=== PATIENT | female | born 2000 | race Caucasian/White ===

== ENCOUNTER 2022-03-16 19:42 | Emergency (ER) | payer MEDICAID, SELFPAY ==
[2022-03-16 19:43] VITALS: BP 109/64; PULSE 75; RESP 18; TEMP 37.1; O2SAT 95; BMI 33.5
[2022-03-16 19:48] VITALS: O2SAT 98
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
[2022-03-16 20:21] LABS: Absolute Lymphocyte Count 2.72 X10^3/uL (0.83-4.51); Absolute Neutrophil Count 12.4 X10^3/uL (2.0-7.7); Basophil# 0.05 X10^3/uL; Basophil% 0.3 % (0-1); Eosinophil# 0.17 X10^3/uL; Hematocrit 38.4 % (37-47); Hemoglobin 13.2 g/dL (12.0-15.0); Lymphocyte # 2.72 X10^3/ul (0.83-4.51); Lymphocyte % 16.4 % (19-41); Mean Corp Hgb Conc 34.4 g/dL (32-36); Mean Corpuscular Hgb 30.7 pg (27.0-32.0); Mean Corpuscular Volume 89.3 fL (81-99); Mean Platelet Vol. 10.6 fl (6.2-12.0); Monocyte# 1.16 X10^3/uL; NRBC Flagged by Analyzer 0 % (0-5); Neutrophil # 12.41 X10^3/uL (2.7-7.7); Neutrophil % 74.9 % (47-70); Platelet Count 317 K/mm3 (150-450); RBC Distribution Width CV 13.9 % (11.6-14.6); RBC Distribution Width SD 45.1 fl (35.1-43.9); White Blood Count 16.6 K/mm3 (4.4-11.0)
[2022-03-16 20:47] LABS: ALB/GLOB Ratio 0.9 RATIO (0.9-2.4); AST(SGOT) 19 U/L (15-37); Alanine Aminotransfer ALT/SGPT 22 U/L (13-56); Albumin, Serum 3.4 g/dL (3.2-5.0); Alkaline Phosphatase 58 U/L (45-117); Anion Gap 10 (5-15); BUN 10 mg/dL (7-18); BUN/Creat Ratio 17.7 RATIO (10-20); Calcium,Total 8.2 mg/dL (8.5-10.1); Chloride 103 mmol/L (98-107); Creatinine, Serum 0.57 mg/dL (0.55-1.02); EST Glomerular Filtration Rate 142 mL/min (>60); Est Glom Filt Rate - Afr Amer 172 mL/min (>60); Estimated Creatinine Clearance 112.14 ml/min; Globulin 3.6 g/dL (2.2-4.2); Glucose 135 mg/dL (74-106); Potassium 3.4 mmol/L (3.5-5.1); Sodium Level 137 mmol/L (136-145)
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
[2022-03-16] MEDS: Ondansetron ODT 4 MG Tablet PO (20:50)
--- NOTE | 2022-03-16 21:20 | RAD_ITS ---
INDICATION: injury EXAMINATION/TECHNIQUE: X-RAY - LEFT XR Knee 1 or 2 Views 2 VIEWS COMPARISON: None. FINDINGS: SOFT TISSUES: Stranding soft tissue density in the subcutaneous soft tissues anterior to the patellar tendon suggesting possible contusion. Bursitis could potentially have similar appearance. Patellar tendon shadow is normal. BONES/JOINTS: No acute fracture or malalignment. Preservation of the joint space and no degenerative bony proliferative changes. No sclerotic or destructive changes observed. RAD/Knee 1 or 2 Views IMPRESSION: Stranding density subcutaneous soft tissues anterior to the patella suggesting contusion. Bursitis could potentially have a similar appearance. No evidence of osseous injury. Electronically Signed: Cali Da Silva DO at 21:01 EDT ,
[2022-03-16 21:51] LABS: Alcohol, Blood (Medical)-Serum < 3.0 mg/dL
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
[2022-03-16 22:03] VITALS: BP 98/82; PULSE 100; RESP 18; O2SAT 95
[2022-03-16 22:05] LABS: Mucous, Urine 0 SEEN /hpf (<or=2+)
[2022-03-16 22:07] LABS: Color, Urine Yellow (Yellow); Glucose, Dipstick Normal (Normal); Ketone-Dipstick Negative (Negative); Leukocyte Esterase-Dipstick 25 /ul (Negative); Nitrite-Dipstick Negative (Negative); Occult Blood-Urine 10 /ul (Negative); Protein-Dipstick Negative (Negative); Urine Bilirubin Dipstick Negative (Negative); Urine Clarity Clear (Clear); Urine Urobilinogen Normal (Normal)
[2022-03-16 22:15] LABS: Bacteria RARE /hpf (None Seen); Red Blood Cells-Urine 0-5 SEEN /hpf (0-5); Squamous Epithelial Cells - UA 0-5 SEEN /hpf (5-10); White Blood Cells 0-5 SEEN /hpf (0-5)
[2022-03-16 22:21] LABS: Amphetamine Urine VISTA NEGATIVE (<1000 ng/mL); Barbiturate Urine VISTA NEGATIVE (< 200 ng/mL); Benzodiazepine Urine VISTA NEGATIVE (< 200 ng/mL); Cocaine Urine VISTA NEGATIVE (< 300 ng/mL); Ecstacy Urine VISTA NEGATIVE (< 500 ng/mL); Methadone Urine VISTA NEGATIVE (< 300 ng/mL); PCP Urine VISTA NEGATIVE (< 25 ng/mL); THC Urine VISTA POSITIVE (< 50 ng/mL); Vista UDS pH Range 6
[2022-03-17 00:49] VITALS: BP 114/64; PULSE 101; RESP 16; O2SAT 97
[2022-03-17] MEDS: Acetaminophen 325 MG Tablet 650 MG PO (00:58)
== END 2022-03-17 00:59 | disposition home or self-care (01) ==
PROVIDERS: Emergency Provider Emergency Medicine; Visit Provider Emergency Medicine
DX: O9A.211 Injury, poisoning and certain other consequences of external causes complicating pregnancy, first trimester (principal); Y92.410 Unspecified street and highway as the place of occurrence of the external cause; F12.90 Cannabis use, unspecified, uncomplicated; R31.9 Hematuria, unspecified; S30.1XXA Contusion of abdominal wall, initial encounter; O99.321 Drug use complicating pregnancy, first trimester; S20.20XA Contusion of thorax, unspecified, initial encounter; V43.62XA Car passenger injured in collision with other type car in traffic accident, initial encounter; S80.02XA Contusion of left knee, initial encounter; V43.52XA Car driver injured in collision with other type car in traffic accident, initial encounter
CPT/HCPCS: 70450; 71260; 72125; 73560; 74177; 76817; 80053; 80307; 81001; 82077; 85025; 86900; 86901; 99285; Q9967; A4216

== ENCOUNTER 2022-05-18 18:26 | Emergency (ER) | payer MEDICAID, SELFPAY ==
[2022-05-18 18:26] VITALS: BP 100/59; PULSE 86; RESP 16; TEMP 35.9; O2SAT 97; BMI 32.1
--- NOTE | 2022-05-18 18:58 | EDS_ITS ---
HPI History of Present Illness Chief Complaint: Back Informant: patient Narrative Narrative: Patient actually complains of left shoulder area pain. She states it comes from a combination of her dog and work. She states her dog is probably 60 pounds. He walks on her left side. Has a tendency to run no matter what it sees and will jerk her arm. Every time it does this it causes soreness around the posterior scapular area. 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 She does a lot of lifting overhead and this bothers her arm. She states sometimes she gets tingling in her hand but it is her entire hand. Is not located to one area. Its not going on now. No color changes. No chest pain or trouble breathing. She is 17 weeks but is having no symptoms related to that. She is right-hand dominant. She states if her boyfriend anne carmonages it it feels better. She is trying to get hold of her insurance company to see if they will pay for massages. [facility] Medical History Anxiety Asthma Depression Home Medications fluoxetine 20 mg tablet 20 mg PO DAILY 03/16/22 [History Last Taken Unknown] vitamins no.144-folic acid 400 mcg chewable tablet () 1 tab PO DAILY 03/16/22 [History Last Taken Unknown] Allergy/AdvReac Type Severity Reaction Status Date / Time No Known Allergies Allergy Verified 05/18/22 18:26 Social History Smoking Status: Never smoker substance use type: marijuana ROS ROS ED Constitutional Constitutional ED: Denies chills or fever(s) ENT ENT ED: Denies ear pain, rhinorrhea or sore throat Cardiovascular Cardiovascular: Denies chest pain, orthopnea, palpitations or racing heartbeat Respiratory/Chest Respiratory/Chest: Denies dyspnea, dyspnea on exertion or orthopnea Gastrointestinal Gastrointestinal: Denies nausea or vomiting Genitourinary Genitourinary ED: Denies hematuria Musculoskeletal Musculoskeletal: Reports other Details: See history of present illness Integumentary Denies Abrasions or rash Neurologic Neurologic: Reports paresthesias; Denies headache(s) or weakness Endocrine Endocrinology: Denies polydipsia or polyuria Hematologic/Lymphatic Hematologic/Lymphatic: Denies easy bleeding or easy bruising Allergic/Immunologic Allergic/Immunologic ED: Denies urticaria EXAM Physical Exam Const Vital Signs: 05/18/22 18:26 Temperature 96.7 F L Temperature Source Temporal Pulse Rate 86 Respiratory Rate 16 Blood Pressure 100/59 L Blood Pressure Mean 72 Pulse Ox 97 Oxygen Delivery Method Room Air Positive well nourished and well developed General Appearance ED: well developed and NAD; Negative for pallor HEENT Reports moist mucous membranes Neck no lymphadenopathy, supple and no JVD Neck Narrative: No cervical spine tenderness or pain with range of motion or axial loading. Resp normal respiratory effort and clear to auscultation bilaterally Resp Narrative: Lungs are clear bilaterally. No pain with a deep breath. Cardio regular rate and regular rhythm GI normal to inspection, nondistended, normoactive bowel sounds and soft to palpation Back/Spine normal to inspection Back/Spine Narrative: No spinal tenderness. Extremity normal to inspection Extremity Narrative: Her range of motion is actually still good. She has some tenderness to the supra and infraspinatus muscles on the left. No tenderness along the humerus. No AC joint tenderness. There is no erythema or warmth or skin changes. Distal pulses are intact. Sensation is intact air hammer stripper strength is intact biceps triceps strength is intact. Neuro oriented x3 and no sensory deficits noted Sensorium / Orientation: Negative for confused, lethargic or stuporous Motor Exam: strength 5/5 throughout; Negative for strength abnormal Skin no rashes or lesions noted General Skin Exam: Negative for jaundice or pallor MDM MDM MDM Narrative Medical decision making narrative: I explained to the patient that I think this is muscular strain from combination of walking her dog frequently and the work that she does. We will write her for light duty for a few days. She will have her boyfriend walk the dog or walk the dog on the right side for a change. She can use Tylenol ice rest and massage. I do not want to use narcotics steroids or nonsteroidals with her being 17 weeks . She understands this. She will follow-up with her physician. Discharge Plan Triage Chief Complaint: Back ED Provider: Lew Boone Dx/Rx/DC Orders Clinical Impression: Strain of left shoulder Instructions: ED Shoulder Sprain Prescriptions: No Action fluoxetine 20 mg Tablet 20 mg PO DAILY 400 mcg Tablet,Chewable 1 tab PO DAILY Primary Care Provider: Care Physician,No Primary Referrals: Rufus Govea DO [STAFF PHYSICIAN] - 1 Week if not improving Care Physician,No Primary [Primary Care Provider] - Disposition Disposition: Home, Self Care
== END 2022-05-18 19:19 | disposition home or self-care (01) ==
LOC: ED 19:07
PROVIDERS: Emergency Provider Emergency Medicine; Visit Provider Emergency Medicine
DX: O9A.212 Injury, poisoning and certain other consequences of external causes complicating pregnancy, second trimester (principal); S46.912A Strain of unspecified muscle, fascia and tendon at shoulder and upper arm level, left arm, initial encounter; F12.90 Cannabis use, unspecified, uncomplicated; Z3A.17 17 weeks gestation of pregnancy; O99.322 Drug use complicating pregnancy, second trimester; O99.342 Other mental disorders complicating pregnancy, second trimester; F41.9 Anxiety disorder, unspecified; F32.A Depression, unspecified; X50.0XXA Overexertion from strenuous movement or load, initial encounter; Y99.0 Civilian activity done for income or pay; Y92.524 Gas station as the place of occurrence of the external cause; Z79.899 Other long term (current) drug therapy
CPT/HCPCS: 99282